=== PATIENT | male | born 2005 | race Caucasian/White ===

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

== ENCOUNTER 2024-03-22 19:02 | Emergency (ER) | payer OTHER ==
--- NOTE | 2024-03-22 19:18 | ED ---
Upper Extremity HPI - General Chief Complaint: Extremity Injury, Upper Stated Complaint: Dislocated right shoulder, neck and right arm pain Time Seen by Provider: 03/22/24 19:18 Source: patient, family, RN notes reviewed Mode of arrival: ambulatory Limitations: physical limitation - History of Present Illness Initial Comments: Is a 18-year-old male with no significant past medical history presents emergency department chief complaint of right shoulder pain. Patient states that he had a grand democrat yesterday evening when he that he was drinking and f ell off of a deck landing on his right shoulder. Patient denies hitting his head or loss consciousness at this time. He states that he fell like his shoulder is displaced at the time of the fall and hit his shoulder into a wall and trying to relocate it. He states that he has been experiencing pain of the right shoulder with intermittent paresthesias radiating down to his fingers for the past day. He has pain with range of motion. He denies shortness of breath. - Related Data Previous Rx's Medication Instructions Recorded Amoxicillin 500 mg PO Q8H 10 Days 11/26/18 Allergies Allergy/AdvReac Type Severity Reaction Status Date / Time No Known Allergies Allergy Verified 03/22/24 19:11 Review of Systems ROS Statement: Those systems with pertinent positive or pertinent negative responses have been documented in the HPI. ROS Other: All systems not noted in ROS Statement are negative. Past Medical History Additional Past Medical History / Comment(s): TORN LUNG LINING, HEART MURMER. History of Any Multi-Drug Resistant Organisms: None Reported Past Surgical History: No Surgical Hx Reported Past Psychological History: No Psychological Hx Reported Smoking Status: Vaper Past Alcohol Use History: Occasional Past Drug Use History: None Reported, Unable to Obtain General Exam Limitations: physical limitation General appearance: alert, in no apparent distress Head exam: Present: atraumatic, normocephalic, normal inspection Eye exam: Present: normal appearance, PERRL, EOMI. Absent: scleral icterus, conjunctival injection, periorbital swelling ENT exam: Present: normal exam, mucous membranes moist Neck exam: Present: normal inspection. Absent: tenderness, meningismus, lymph adenopathy Respiratory exam: Present: normal lung sounds bilaterally. Absent: respiratory distress, wheezes, rales, rhonchi, stridor Cardiovascular Exam: Present: regular rate, normal rhythm, normal heart sounds. Absent: systolic murmur, diastolic murmur, rubs, gallop, clicks GI/Abdominal exam: Present: soft, normal bowel sounds. Absent: distended, tenderness, guarding, rebound, rigid Right Shoulder Exam: Absent: full ROM (pain with ROM including abduction, adduction and rotation), swelling, abrasion, laceration, ecchymosis, deformity Upper Arm exam: Present: normal inspection, full ROM. Absent: tenderness, swelling Forearm Wrist exam: Present: normal inspection, full ROM Hand Wrist exam: Present: normal inspection, full ROM Vascular: Present: normal capillary refill, radial pulse (2+). Absent: vascular compromise Back exam: Present: normal inspection Skin exam: Present: warm, dry, intact, normal color. Absent: rash Course Vital Signs 03/22/24 19:05 Temperature 98 F Pulse Rate 72 Respiratory 16 Rate Blood Pressure 129/80 O2 Sat by Pulse 100 Oximetry Procedures - Orthopedic Splinting/Casting Injury #1 Side: right Upper Extremity Injury Location: shoulder Upper Extremity Immobilizer: sling/shoulder immobilizer (sling) Medical Decision Making - Medical Decision Making Was pt. sent in by a medical professional or institution (, PA, METAL HANGING HELPER, urgent care, hospital, or fpc...) When possible be specific @ -No Did you speak to anyone other than the patient for history (EMS, parent, family, police, friend...)? What history was obtained from this source @ -No Did you review nursing and triage notes (agree or disagree)? Why? @ -I reviewed and agree with nursing and triage notes Were old charts reviewed (outside hosp., previous admission, EMS record, old EKG, old radiological studies, urgent care reports/EKG's, fpc records)? Report findings @ -No old charts were reviewed Differential Diagnosis (chest pain, altered mental status, abdominal pain women, abdominal pain men, vaginal bleeding, weakness, fever, dyspnea, syncope, headache, dizziness, GI bleed, back pain, seizure, CVA, palpatations, mental health, musculoskeletal)? @ -Differential Musculoskeletal Muscular strain, contusion, ligament sprain, fracture, arthritis, septic arthritis, bursitis, cellulitis, muscle spasm, nerve compression, DVT, arterial occlusion, herpes zoster, electrolyte abnormality, tumor.... This is not meant to be in all inclusive list EKG interpreted by me (3pts min.). @ -None X-rays interpreted by me (1pt min.). @ -shoulder x-ray, x-ray of the right shoulder and right clavicle no evidence for fracture, dislocation or bony abnormality. CT interpreted by me (1pt min.). @ -None done U/S interpreted by me (1pt. min.). @ -None done What testing was considered but not performed or refused? (CT, X-rays, U/S, labs)? Why? @ -None What meds were considered but not given or refused? Why? @ -Was offered pain medication including Toradol and Tylenol but he has declined at this time. Did you discuss the management of the patient with other professionals (lis koehler i.ePerry Rodriguez, PA, METAL HANGING HELPER, lab, RT, psych nurse, geriatric social worker, field crop harvest worker, teacher, school services officer, protective services case worker)? Give summary @ -No Was smoking cessation discussed for >3mins.? @ -No Was critical care preformed (if so, how long)? @ -No Were there social determinants of health that impacted care today? How? (Homelessness, low income, unemployed, alcoholism, drug addiction, transportation, low edu. Level, literacy, decrease access to med. care, snf, rehab)? @ -No Was there de-escalation of care discussed even if they declined (Discuss DNR or withdrawal of care, Hospice)? DNR status @ -No What co-morbidities impacted this encounter? (DM, HTN, Smoking, COPD, CAD, Cancer, CVA, ARF, Chemo, Hep., AIDS, mental health diagnosis, sleep apnea, morbid obesity)? @ -None Was patient admitted / discharged? Hospital course, mention meds given and route, prescriptions, significant lab abnormalities, going to OR and other pertinent info. @ -Discharge. 18-year-old male with right shoulder pain. On examination patient is pain with range of motion of the right shoulder. Neurovascularly intact. At this time he will be evaluated with xray imaging. Nonconcerning for evidence of fracture, dislocation. Patient was provided with a sling and his arm placed in a sling for comfort. Recommend that he continue Tylenol Motrin at home as needed ice to the affected shoulder. All questions have been answered at bedside and strict return parameters discussed with the patient is verbalized understanding. Case discussed with Dr. Marshall. Undiagnosed new problem with uncertain prognosis? @ -No Drug Therapy requiring intensive monitoring for toxicity (Heparin, Nitro, Insulin, Cardizem)? @ -No Were any procedures done? @ -No Diagnosis/symptom? @ -right shoulder pain Acute, or Chronic, or Acute on Chronic? @ -acute Uncomplicated (without systemic symptoms) or Complicated (systemic symptoms)? @ -uncomplicated Side effects of treatment? @ -No Exacerbation, Progression, or Severe Exacerbation? @ -No Poses a threat to life or bodily function? How? (Chest pain, [place], [place], pneumonia, PE, COPD, DKA, ARF, appy, cholecystitis, CVA, Diverticulitis, Homicidal, Suicidal, threat to staff... and all critical care pts) @ -No Disposition Clinical Impression: Shoulder pain, Fall Disposition: HOME SELF-CARE Condition: Good Instructions (If sedation given, give patient instructions): Shoulder Pain (ED) Additional Instructions: The emergency department if your symptoms worsen or do not improve. Use Tylenol Motrin at home as needed. Use sling to aid in symptomatic relief. Is patient prescribed a controlled substance at d/c from ED?: No Referrals: Whitney Chaney MD [Primary Care Provider] - 1-2 days Time of Disposition: 20:04
--- NOTE | 2024-03-22 19:46 | XR ---
EXAMINATION TYPE: XR shoulder complete RT DATE OF EXAM: 03/22/2024 7:39 PM CLINICAL INDICATION:Male, 18 years old with history of fall, injury, pain; [facility] COMPARISON: None TECHNIQUE: XR shoulder complete RT; examined in AP, internally rotated and scapular Y projections. FINDINGS: No evidence of acute osseous pathology, joint dislocation, or soft tissue swelling. The remaining po rtions of the visualized chest are unremarkable. IMPRESSION: No acute osseous pathology.
--- NOTE | 2024-03-22 19:47 | XR ---
EXAMINATION TYPE: XR chest 2V DATE OF EXAM: 03/22/2024 7:39 PM CLINICAL INDICATION:Male, 18 years old with history of fall, injury, pain; COMPARISON: Chest radiographs from 11/26/2018 TECHNIQUE: XR chest 2V Frontal and lateral views of the chest. FINDINGS: Lungs/Pleura: There is no evidence of pleural effusion, focal consolidation, or pneumothorax. Pulmonary vascularity: Unremarkable. Heart/mediastinum: Cardiomediastinal silhouette is unremarkable. Musculoskeletal: No acute osseous pathology. IMPRESSION: No acute cardiopulmonary disease/process.
--- NOTE | 2024-03-22 19:48 | XR ---
EXAMINATION TYPE: XR clavicle RT DATE OF EXAM: 03/22/2024 7:39 PM CLINICAL INDICATION:Male, 18 years old with history of fall, injury, pain; COMPARISON: None TECHNIQUE: XR clavicle RT examined in AP and cephalic tilt views . FINDINGS: No evidence of acute or chronic osseous pathology, joint dislocation or soft tissue swelling. IMPRESSION: Normal clavicle.
[2024-03-22 20:13] VITALS: BP 123/77; PULSE 80; RESP 18; TEMP 98
== END 2024-03-22 20:13 | disposition home or self-care (01) ==
LOC: EC 19:02
DX: S43.004A Unspecified dislocation of right shoulder joint, initial encounter (principal); F17.290 Nicotine dependence, other tobacco product, uncomplicated; W01.0XXA Fall on same level from slipping, tripping and stumbling without subsequent striking against object, initial encounter
CPT/HCPCS: 29105; 71046; 99283